=== PATIENT | male | born 1965 | race Native Hawaiian/Other Pacific Islander ===

== ENCOUNTER 2016-06-16 17:16 | Outpatient (CLI) | payer BC ==
[~2016-06-16 17:16] MED LIST: COZAAR100 MG PO; LIPITOR20 MG PO
[2016-06-16 17:45] LABS: PLATELET COUNT 292 K/uL (142-355)
== END 2016-06-16 19:26 | disposition home or self-care (01) ==
LOC: LABW 17:16
PROVIDERS: Internal Medicine
DX: I10 Essential (primary) hypertension (principal); E78.00 Pure hypercholesterolemia, unspecified
CPT/HCPCS: 36415; 80053; 80061; 81000; 84154; 84443; 85027